=== PATIENT | male | born 1970 | race Two or more races ===

== ENCOUNTER 2020-10-02 07:11 | Outpatient (CLI) | payer OTHER | END 2020-10-02 07:22 | disposition home or self-care (01) | LOC: TOM 07:11 | PROVIDERS: ATTEND Internal Medicine Nephrology | DX: Q61.01 Congenital single renal cyst (principal); K76.0 Fatty (change of) liver, not elsewhere classified; N18.2 Chronic kidney disease, stage 2 (mild); E11.9 Type 2 diabetes mellitus without complications; R80.8 Other proteinuria; G47.39 Other sleep apnea ==